=== PATIENT | female | born 1995 | race Caucasian/White ===

== ENCOUNTER 2018-06-23 12:52 | Emergency (ER) | payer BC, MEDICAID ==
[~2018-06-23] VITALS: Ht 165.1 cm; Wt 62.3 kg
[2018-06-23 13:34] VITALS: Ht 165.1 cm; Wt 62.3 kg
[2018-06-23] MEDS ORDERED: LEXAPRO10 MG PO (13:35)
[2018-06-23 13:57] LABS: APPEARANCE CLEAR (CLEAR); BILIRUBIN NEGATIVE (NEGATIVE); COLOR STRAW (YELLOW); GLUCOSE NEGATIVE (NEGATIVE); KETONE NEGATIVE (NEGATIVE); NITRITE NEGATIVE (NEGATIVE); PROTEIN NEGATIVE (NEGATIVE); UROBILINOGEN NORMAL (NORMAL)
[2018-06-23 14:00] LABS: HCG URINE NEGATIVE (NEGATIVE)
[2018-06-23 14:13] LABS: BASOPHILS 0.2 % (0-2); EOSINOPHILS 1.6 % (0-7); HEMATOCRIT 36.3 % (36.0-48.0); HEMOGLOBIN 12.4 g/dL (12-16); LYMPHOCYTES 29.3 % (15-50); MCH 30.1 pg (26.0-34.0); MCHC 34.2 g/dL (31.0-37.0); MCV 88.1 fL (80.0-100.0); MEAN PLATELET VOLUME 9.8 fL (7.4-10.4); MONOCYTES 7.6 % (2-11); NEUTROPHILS 61.3 % (40-80); PLATELET COUNT 209 10x3/uL (130-400); RBC 4.12 10x6/uL (4.00-5.40); WBC 5.6 10x3/uL (4.8-10.8)
[2018-06-23] MEDS ORDERED: CYCLOBENZAPRINE10 MG PO (14:19)
[2018-06-23] MEDS ORDERED: NORCO 7.5/325 T1 TA1 PO (14:19)
[2018-06-23 14:27] LABS: ALBUMIN 3.9 g/dL (3.4-5.0); ALKALINE PHOSPHATASE 71 U/L (46-116); ALT (SGPT) 16 U/L (10-68); AMYLASE - SERUM 75 U/L (25-115); BILIRUBIN - TOTAL 0.34 mg/dL (0.2-1.3); CALC OSMOLALITY 271 mosm/kg (275-300); CALCIUM 8.5 mg/dL (8.5-10.1); CARBON DIOXIDE 25.2 mmol/L (21.0-32.0); CHLORIDE - SERUM 103 mmol/L (98-107); CREATININE - SERUM 0.5 mg/dL (0.6-1.3); GLUCOSE 84 mg/dL (74-106); LIPASE 116 U/L (73-393); POTASSIUM - SERUM 3.9 mmol/L (3.5-5.1); PROTEIN - SERUM 7.3 g/dL (6.4-8.2); SODIUM 137 mmol/L (136-145); UREA NITROGEN 10 mg/dL (7-18); eGFR NON AFRICAN AMERICAN > 90 mL/min (90-120)
[2018-06-23 14:35] VITALS: BP 103/67
== END 2018-06-23 14:37 | disposition home or self-care (01) ==
LOC: D.ER 12:52
PROVIDERS: Emergency Medicine
DX: M54.5 Low back pain (principal); R11.2 Nausea with vomiting, unspecified